=== PATIENT | female | born 1960 | race Asian ===

== ENCOUNTER 2016-11-16 20:28 | Emergency (ER) | payer SELFPAY ==
[~2016-11-16] VITALS: Ht 167.6 cm; Wt 63.5 kg
[2016-11-16] MEDS ORDERED: Acetaminophen 500mg (ES) tab ORAL ONE (21:00)
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
[2016-11-16] MEDS ORDERED: IBUPROFEN600 MG ORAL (21:25)
[2016-11-16] MEDS ORDERED: CYCLOBENZAPRINE10 MG ORAL (21:25)
[2016-11-16] MEDS ORDERED: ACETAMINOPHEN500 M3 ORAL (21:25)
[2016-11-16 22:13] VITALS: BP 120/88
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
== END 2016-11-16 22:15 | disposition home or self-care (01) ==
LOC: EDBD 20:28 → EMR 20:41
DX: S16.1XXA Strain of muscle, fascia and tendon at neck level, initial encounter (principal); S13.4XXA Sprain of ligaments of cervical spine, initial encounter; R51 Headache; V43.52XA Car driver injured in collision with other type car in traffic accident, initial encounter; Y93.9 Activity, unspecified; Y92.410 Unspecified street and highway as the place of occurrence of the external cause; M79.605 Pain in left leg
CPT/HCPCS: 70450; 72125; 99284